=== PATIENT | female | born 1940 | race Caucasian/White ===

== ENCOUNTER 2024-01-03 16:17 | Emergency (ER) | payer OTHER ==
[2024-01-03] MEDS ORDERED: NA CHLORIDE 0.9% 1,000 ML ONE (17:15)
[2024-01-03 17:34] LABS: Absolute Eosinophils 0.1 K/uL (0-0.5); Absolute Lymphocytes (CBC) 1.1 K/uL (0.7-4.9); Absolute Monocytes 0.6 K/uL (0.1-1.3); Absolute Neutrophil 9.1 K/uL (1.8-8.0); Basophils % 0.3 % (0-1.3); Eosinophils % 1.1 % (0-4.4); Hematocrit 39.8 % (36.0-45.0); Hemoglobin 13.4 g/dL (12.0-15.0); Lymphocytes % 10.2 % (15.3-44.8); MCHC 33.6 g/dL (32.0-36.0); MCV 86.1 fL (80-100); MPV 8.2 fL (7.6-11.3); Neutrophils % 83.4 % (41.7-73.7); Platelets 292 thou/uL (152-406); RBC Red Blood Cell Count 4.63 M/uL (3.86-4.86); Red Cell Distribution Width 15.1 % (12.1-15.2)
--- NOTE | 2024-01-03 18:05 | RAD REPORT ---
EXAM DESCRIPTION: RAD - Chest Single View - 01/03/2024 5:57 pm CLINICAL HISTORY: near syncope Chest pain. COMPARISON: <Comparisons> FINDINGS: Portable technique limits examination quality. The lungs are emphysematous but grossly clear. The heart is normal in size. No displaced fractures. IMPRESSION: COPD.
[2024-01-03 18:52] LABS: Albumin 3.4 g/dL (3.4-5.0); Albumin/Globulin Ratio 1.3 (1.1-1.8); Anion Gap 10.8 mEq/L (5.0-15.0); Bilirubin Direct 0.2 mg/dL (0-0.2); Bilirubin Indirect, Calculated 0.5 mg/dL (0.2-0.8); Bilirubin Total 0.7 mg/dL (0.2-1.0); Globulin 2.7 g/dL (2.3-3.5); Magnesium 2.2 mg/dL (1.6-2.4); Potassium 3.8 mEq/L (3.5-5.1); Protein, Total 6.1 g/dL (6.4-8.2); Troponin High Sensitivity 6.3 pg/mL (<58.9)
[2024-01-03 19:07] LABS: Specific Gravity 1.007 (1.005-1.030); Sqamous Epithelial <5 /HPF (None Seen); Urine Bacteria <20 /HPF (<20); Urine Bilirubin NEGATIVE (Negative); Urine Blood Negative (Negative); Urine Clarity Extremely Turbid (Clear); Urine Color Light-Yellow (Yellow); Urine Crystals Unidentified Few /HPF (None Seen); Urine Culture Reflex Order NOT NEEDED; Urine Glucose NEGATIVE (Negative); Urine Ketones NEGATIVE (Negative); Urine Micro Reflex YN NO BILL MICROSCOPIC; Urine Mucus Slight /HPF (None Seen); Urine Nitrite 2+ (Negative); Urine Protein NEGATIVE (Negative); Urine RBC <5 /HPF (None Seen); Urine Urobilinogen Normal (Normal); Urine WBC Clump Rare /HPF (None Seen); Urine pH 7.5 (5.0-7.0)
--- NOTE | 2024-01-03 19:33 | RAD REPORT ---
EXAM DESCRIPTION: CTAbdomen Pelvis W Contrast - 01/03/2024 7:18 pm CLINICAL HISTORY: Abdominal pain. abd pain, diarrhea COMPARISON: <Comparisons> TECHNIQUE: CT imaging of the abdomen and pelvis was performed with 100 ml non-ionic IV contrast. All CT scans are performed using dose optimization technique as appropriate and may include automated exposure control or mA/KV adjustment according to patient size. FINDINGS: The lung bases are clear.Small hiatal hernia. The liver demonstrates benign cyst. Spleen, pancreas, adrenal glands and kidneys are within normal li mits. No bowel obstruction, free air, free fluid or abscess. Sigmoid diverticulosis coli without diverticul itis. The appendix is normal. No evidence of significant lymphadenopathy. Mild lumbar degenerative changes. IMPRESSION: No acute intra-abdominal or pelvic finding. Sigmoid diverticulosis coli without diverticulitis.
--- NOTE | 2024-01-03 19:58 | EDPHYS ---
Physician Documentation [facility] Name: Mira Lynn Age: 83 yrs Sex: Female : 1940 Arrival Date: 01/03/2024 Time: 16:17 Bed 14 Private MD: ED Physician Dalton Hall HPI: 01/02 17:13 This 83 yrs old Female presents to ER via EMS with complaints of low blood pressure rt readings. 17:13 Patient presents to the ED with a near syncopal episode that occurred about 1 hour rt prior to arrival. The patient became acutely lightheaded but did not lose consciousness. She was helped down by her daughter and had no head trauma. Patient reportedly had diarrhea at that time. Denies any current diarrhea reports some mild abdominal discomfort. States that she is no longer lightheaded but does not feel back to normal. Denies other acute complaints at this time, symptoms are moderate in severity, no other aggravating or elevating factors.. Historical: - Allergies: 16:30 No Known Allergies; rs5 - PMHx: 16:30 Hypertensive disorder; Hypercholesterolemia; rs5 - PSHx: 16:30 None; rs5 - Immunization history:: Adult Immunizations up to date. - Infectious Disease History:: Denies. - Social history:: Smoking status: Patient denies any tobacco usage or history of. - Family history:: not pertinent. ROS: 17:13 Constitutional: Negative for fever, chills, and weight loss, Cardiovascular: Negative rt for chest pain, palpitations, and edema, Respiratory: Negative for shortness of breath, cough, wheezing, and pleuritic chest pain, MS/Extremity: Negative for injury and deformity, Skin: Negative for injury, rash, and discoloration, Psych: Negative for depression, anxiety, suicide ideation, homicidal ideation, and hallucinations, 17:13 Abdomen/GI: Positive for abdominal pain, diarrhea, Negative for nausea and vomiting, rectal bleeding, 17:13 Neuro: Positive for near syncope, Negative for loss of consciousness, Exam: 17:13 Constitutional: This is a well developed, well nourished patient who is awake, alert, rt and in no acute distress. Head/Face: Normocephalic, atraumatic. Chest/axilla: Normal chest wall appearance and motion. Nontender with no deformity. No lesions are appreciated. Cardiovascular: Regular rate and rhythm with a normal S1 and S2. No gallops, murmurs, or rubs. Normal PMI, no JVD. No pulse deficits. Respiratory: Lungs have equal breath sounds bilaterally, clear to auscultation and percussion. No rales, rhonchi or wheezes noted. No increased work of breathing, no retractions or nasal flaring. Skin: Warm, dry with normal turgor. Normal color with no rashes, no lesions, and no evidence of cellulitis. MS/ Extremity: Pulses equal, no cyanosis. Neurovascular intact. Full, normal range of motion. Neuro: Awake and alert, GCS 15, oriented to person, place, time, and situation. Cranial nerves II-XII grossly intact. Motor strength 5/5 in all extremities. Sensory grossly intact. Cerebellar exam normal. Normal gait. 17:13 Abdomen/GI: Minimal tenderness diffusely without rebound, guarding, distention, 17:47 ECG was reviewed by the Attending Physician. rt Vital Signs: 16:26 BP 133 / 66; Pulse 66; Resp 17; Temp 97.8(O); Pulse Ox 94% on R/A; rs5 17:49 BP 125 / 64; Pulse 60; Resp 17; Pulse Ox 98% on R/A; rs5 18:56 BP 123 / 92; Pulse 88; Resp 18; Temp 97.8; Pulse Ox 94% on R/A; Pain 0/10; bm8 20:36 BP 128 / 86; Pulse 88; Resp 16; Temp 98.2; Pulse Ox 100% ; Pain 0/10; jm12 18:56 Pain Scale: Adult bm8 20:36 Pain Scale: Adult jm12 Nicolás Coma Score: 18:56 Eye Response: spontaneous(4). Motor Response: obeys commands(6). Verbal Response: bm8 oriented(5). Total: 15. MDM: 16:44 Patient medically screened. rt 20:09 Differential Diagnosis Hypotension, likely medication induced, dehydration, rt dysrhythmia, anemia. Data reviewed: vital signs, nurses notes, lab test result(s), EKG, radiologic studies. Consideration of Admission/Observation Escalation of care including admission/observation considered. Offered patient admission for further monitoring. Patient and daughter state that they do not wish to be admitted to the hospital, will watch the patient closely at home, believe this is reasonable at this time, patient to follow-up as an outpatient. Strict return precautions were discussed. I considered the following discharge prescriptions or medication management in the emergency department Medications were administered in the Emergency Department. See MAR. Independent interpretation of the following test(s) in the Emergency Department CT Scan: My interpretation is No bowel obstruction similar to rotation of CT scan. Care significantly affected by the following chronic conditions: Hypertension. Counseling: I had a detailed discussion with the patient and/or guardian regarding the historical points, exam findings, and any diagnostic results supporting the discharge/admit diagnosis, lab results, radiology results, the need for outpatient follow up, to return to the emergency department if symptoms worsen or persist or if there are any questions or concerns that arise at home. Response to treatment: the patient's symptoms have markedly improved after treatment. 01/02 16:58 Order name: Basic Metabolic Panel; Complete Time: 19:12 rt 01/02 16:58 Order name: CBC with Diff; Complete Time: 18:12 rt 01/02 16:58 Order name: LFT's; Complete Time: 19:12 rt 01/02 16:58 Order name: Magnesium; Complete Time: 19:12 rt 01/02 16:58 Order name: Troponin HS; Complete Time: 19:12 rt 01/02 16:58 Order name: UAM; Complete Time: 19:12 rt 01/02 16:58 Order name: XRAY Chest (1 view); Complete Time: 18:12 rt 01/02 16:58 Order name: CT Abd/Pelvis - IV Contrast Only; Complete Time: 19:35 rt 01/02 16:58 Order name: EKG; Complete Time: 16:59 rt 01/02 16:58 Order name: Cardiac monitoring; Complete Time: 17:21 rt 01/02 16:58 Order name: EKG - Nurse/Tech; Complete Time: 17:48 rt 01/02 16:58 Order name: IV Saline Lock; Complete Time: 17:21 rt 01/02 16:58 Order name: Labs collected and sent; Complete Time: 17:21 rt 01/02 16:58 Order name: O2 Per Protocol; Complete Time: 17:21 rt 01/02 16:58 Order name: O2 Sat Monitoring; Complete Time: 17:21 rt EC:47 Rate is 77 beats/min. Rhythm is regular, Normal Sinus Rhythm with No ectopy. QRS [place] rt is Normal. MS interval is normal. QRS interval is normal. QT interval is normal. No Q waves. Clinical impression: NSR w/ Non-specific ST/T Changes. Administered Medications: 17:20 Drug: NS 0.9% IV 1000 ml IV at 1 bolus Per protocol; 1000 mL bolus Route: IV; Rate: 1 rs5 bolus; Site: right antecubital; Disposition Summary: 01/03/24 19:58 Discharge Ordered Notes: Location: Home rt Condition: Stable rt Diagnosis - Syncope Near rt - Idiopathic hypotension rt Followup: rt - With: Private Physician - When: 2 - 3 days - Reason: Discharge Instructions: - Discharge Summary Sheet rt - Hypotension rt - Near-Syncope rt Forms: - Medication Reconciliation Form rt - Antibiotic Education rt - Prescription Opioid Use rt - Patient Portal Instructions rt - Leadership Thank You Letter rt Signatures: Dispatcher [employer] EDDalton Escalante MD MD rt Beau Caldwell RN RN rs5 Corrections: (The following items were deleted from the chart) 16:59 16:59 Abdomen Pelvis W Con+CT.RAD.BRZ ordered. EDMS EDMS
--- NOTE | 2024-01-03 19:58 | ER ---
Nurse's Notes [facility] Name: Mira Lynn Age: 83 yrs Sex: Female : 1940 Arrival Date: 01/03/2024 Time: 16:17 Bed 14 Private MD: Diagnosis: Syncope Near;Idiopathic hypotension Presentation: 01/02 16:26 Chief complaint: EMS states: Near syncopal episode while ambulating into the kitchen. rs5 Denies falls or LOC. Daughter toned out EMS, on arrival blood pressure readings were in 80's systolics. Coronavirus screen: At this time, the client does not indicate any symptoms associated with coronavirus-19. Ebola Screen: No symptoms or risks identified at this time. Initial Sepsis Screen: Does the patient meet any 2 criteria? No. Patient's initial sepsis screen is negative. Does the patient have a suspected source of infection? No. Patient's initial sepsis screen is negative. Risk Assessment: Do you want to hurt yourself or someone else? Patient reports no desire to harm self or others. Onset of symptoms was January 03, 2024. 16:26 Method Of Arrival: EMS: [facility] rs5 16:26 Acuity: ELSA 3 rs5 16:26 Care prior to arrival: Medication(s) given: 1 L normal saline IV initiated. 20 GA, in rs5 the right antecubital area. Historical: - Allergies: 16:30 No Known Allergies; rs5 - PMHx: 16:30 Hypertensive disorder; Hypercholesterolemia; rs5 - PSHx: 16:30 None; rs5 - Immunization history:: Adult Immunizations up to date. - Infectious Disease History:: Denies. - Social history:: Smoking status: Patient denies any tobacco usage or history of. - Family history:: not pertinent. Screenin:34 [facility] ED Fall Risk Assessment (Adult) History of falling in the last 3 months, rs5 including since admission Yes- single mechanical fall (1 pt) Confusion or Disorientation No (0 pts) Intoxicated or Sedated No (0 pts) Impaired Gait Yes (1 pt) Mobility Assist Device Used Yes (1 pt) Altered Elimination No (0 pt) Score/Fall Risk Level 0 - 2 = Low Risk Oriented to surroundings, Maintained a safe environment. Abuse screen: Denies threats or abuse. Nutritional screening: No deficits noted. Tuberculosis screening: No symptoms or risk factors identified. Assessment: 16:30 General: Appears in no apparent distress. comfortable, Behavior is calm, cooperative. rs5 Pain: Denies pain. Neuro: Level of Consciousness is awake, alert, obeys commands, Oriented to person, place, time, situation. Cardiovascular: Patient's skin is warm and dry. Respiratory: Airway is patent Respiratory effort is even, unlabored, Respiratory pattern is regular, symmetrical. GI: Abdomen is round non-distended, Abd is soft and non tender X 4 quads. : No signs and/or symptoms were reported regarding the genitourinary system. EENT: No signs and/or symptoms were reported regarding the EENT system. Derm: Skin is intact, Skin is pink, warm \T\ dry. Musculoskeletal: Range of motion: intact in all extremities. 17:49 Reassessment: Patient and/or family updated on plan of care and expected duration. Pain rs5 level reassessed. Patient is alert, oriented x 3, equal unlabored respirations, skin warm/dry/pink. 18:45 Reassessment: Patient appears in no apparent distress at this time. Patient and/or bm8 family updated on plan of care and expected duration. Pain level reassessed. Patient is alert, oriented x 3, equal unlabored respirations, skin warm/dry/pink. Patient denies pain at this time. Reassessment: Patient states symptoms have improved. Pain: Denies pain. 19:31 Reassessment: No changes from previously documented assessment. Patient is alert, jm12 oriented x 3, equal unlabored respirations, skin warm/dry/pink. Vital Signs: 16:26 BP 133 / 66; Pulse 66; Resp 17; Temp 97.8(O); Pulse Ox 94% on R/A; rs5 17:49 BP 125 / 64; Pulse 60; Resp 17; Pulse Ox 98% on R/A; rs5 18:56 BP 123 / 92; Pulse 88; Resp 18; Temp 97.8; Pulse Ox 94% on R/A; Pain 0/10; bm8 20:36 BP 128 / 86; Pulse 88; Resp 16; Temp 98.2; Pulse Ox 100% ; Pain 0/10; jm12 18:56 Pain Scale: Adult bm8 20:36 Pain Scale: Adult [facility] Vitals: 18:56 Cardiac Rhythm Assessment Sinus rhythm. bm8 Oakley Coma Score: 18:56 Eye Response: spontaneous(4). Motor Response: obeys commands(6). Verbal Response: bm8 oriented(5). Total: 15. ED Course: 16:26 Patient arrived in ED. rs5 16:26 Dalton Hall MD is Attending Physician. rt 16:29 Triage completed. rs5 16:34 Beau Caldwell, RN is Primary Nurse. rs5 16:34 Patient has correct armband on for positive identification. Placed in gown. Bed in low rs5 position. Call light in reach. Side rails up X2. 16:34 No provider procedures requiring assistance completed. rs5 17:59 XRAY Chest (1 view) In Process Unspecified. EDMS 18:56 Client placed on continuous cardiac and pulse oximetry monitoring. NIBP monitoring bm8 applied. school lunch monitor on. Pulse ox on. NIBP on. Door closed. Noise minimized. Warm blanket given. Pillow given. Verbal reassurance given. Head of bed elevated. 18:56 Inserted saline lock: 20 gauge in right antecubital area, using aseptic technique. bm8 19:20 CT Abd/Pelvis - IV Contrast Only In Process Unspecified. EDMS 19:31 IV is patent, is intact, with fluids infusing freely, with good blood return, Flushed jm12 right antecubital with 5 ml normal saline. 20:37 IV discontinued, intact, bleeding controlled, No redness/swelling at site. Pressure jm12 dressing applied. Administered Medications: 17:20 Drug: NS 0.9% IV 1000 ml IV at 1 bolus Per protocol; 1000 mL bolus Route: IV; Rate: 1 rs5 bolus; Site: right antecubital; Medication: 16:35 VIS not applicable for this client. rs5 Outcome: 19:58 Discharge ordered by MD. rt 20:38 Discharged to home ambulatory, with family, jm 20:38 Condition: stable 20:38 Discharge instructions given to patient, family, Instructed on discharge instructions, follow up and referral plans. Demonstrated understanding of instructions, follow-up care, 20:38 Patient left the ED. jm12 Signatures: Dispatcher [employer] EDND Dalton Hall MD MD rt Beau Caldwell, RN RN rs5 Eagle Mcclure RN RN bm8 Markee, Natalee, RN RN jm12
[2024-01-03 21:02] VITALS: BP 128/86; TEMP 98.2; O2SAT 100
--- NOTE | 2024-01-04 13:54 | EKG ---
Test Date: 2024-01-03 Test Time: 17:35:04 Dot Etcher: RUTH MEASUREMENT RESULTS: Intervals: Rate: 77 PA: 162 QRSD: 78 QT: 440 QTc: 497 [place]ry: P: 72 PA: 162 QRS: 4 T: 69 INTERPRETIVE STATEMENTS: Normal sinus rhythm Nonspecific ST abnormality Prolonged QT Abnormal ECG No previous ECG available for comparison Electronically Signed On 01-04-24 13:54:05 CDT by Perez Nicolas
== END 2024-01-03 20:38 | disposition home or self-care (01) ==
LOC: ER 16:17
DX: I95.0 Idiopathic hypotension (principal); R19.7 Diarrhea, unspecified; R11.0 Nausea; I10 Essential (primary) hypertension
CPT/HCPCS: 93005; 85025; 81001; 80048; 36415; 83735; 80076; 84484; 74177; 71045; 99285; Q9967; J7030

== ENCOUNTER 2024-01-08 02:56 | Emergency (ER) | payer OTHER ==
[2024-01-08 03:46] LABS: Absolute Basophils 0.1 K/uL (0-0.5); Absolute Eosinophils 0.3 K/uL (0-0.5); Absolute Lymphocytes (CBC) 2.1 K/uL (0.7-4.9); Absolute Monocytes 0.7 K/uL (0.1-1.3); Basophils % 1.3 % (0-1.3); Eosinophils % 4.4 % (0-4.4); Hematocrit 39.7 % (36.0-45.0); Hemoglobin 13.5 g/dL (12.0-15.0); Lymphocytes % 29.2 % (15.3-44.8); MCH 29.1 pg (27.0-35.0); MCV 85.5 fL (80-100); MPV 8.2 fL (7.6-11.3); Monocytes % 10.2 % (3.3-12.3); Neutrophils % 54.9 % (41.7-73.7); Nucleated Red Blood Cells % 0.1 % (0-0); Platelets 283 thou/uL (152-406); RBC Red Blood Cell Count 4.64 M/uL (3.86-4.86); Red Cell Distribution Width 15.2 % (12.1-15.2)
[2024-01-08 03:55] LABS: Anion Gap 10.3 mEq/L (5.0-15.0); Potassium 3.3 mEq/L (3.5-5.1); Troponin High Sensitivity 6.8 pg/mL (<58.9)
[2024-01-08] MEDS ORDERED: AMLODIPINE 5 MG TAB ONE (04:07)
[2024-01-08] MEDS ORDERED: METOPROLOL XL 50 MG TAB PO ONE (04:07)
[2024-01-08] MEDS ORDERED: NA CHLORIDE 0.9% 250 ML ONE (04:53)
[2024-01-08] MEDS ORDERED: POTASSIUM 25 MEQ EFFERV TAB ONE (04:53)
[2024-01-08 05:40] LABS: Specific Gravity 1.007 (1.005-1.030); Sqamous Epithelial None Seen /HPF (None Seen); Urine Bacteria <20 /HPF (<20); Urine Bilirubin NEGATIVE (Negative); Urine Blood Negative (Negative); Urine Clarity Turbid (Clear); Urine Color Colorless (Yellow); Urine Culture Reflex Order NOT NEEDED; Urine Glucose NEGATIVE (Negative); Urine Ketones NEGATIVE (Negative); Urine Microscopic Reflex YN ORDER UMIC; Urine Mucus Slight /HPF (None Seen); Urine Nitrite NEGATIVE (Negative); Urine Protein NEGATIVE (Negative); Urine RBC <5 /HPF (None Seen); Urine Urobilinogen Normal (Normal); Urine WBC <5 /HPF (<5)
--- NOTE | 2024-01-08 05:43 | ER ---
Nurse's Notes [facility] Name: Mira Lynn Age: 83 yrs Sex: Female : 1940 Arrival Date: 01/08/2024 Time: 02:56 Bed 7 Private MD: Diagnosis: Essential (primary) hypertension;Hypokalemia Presentation: 01/07 02:59 Chief complaint: EMS states: She was here recently due to low blood pressure, she ha1 discontinue her blood pressure medications and today she reports elevated blood pressure. on our arrival blood pressure 198/103. 20 mg of Labetalol were given. 02:59 Coronavirus screen: Vaccine status: Patient reports receiving the 2nd dose of the covid ha1 vaccine. Ebola Screen: No symptoms or risks identified at this time. Initial Sepsis Screen: Does the patient meet any 2 criteria? No. Patient's initial sepsis screen is negative. Does the patient have a suspected source of infection? No. Patient's initial sepsis screen is negative. Risk Assessment: Do you want to hurt yourself or someone else? Patient reports no desire to harm self or others. Onset of symptoms was January 08, 2024. 02:59 Method Of Arrival: EMS: [facility] ha1 02:59 Acuity: ELSA 3 ha1 Triage Assessment: 01/06 02:59 General: Appears comfortable, Behavior is calm, cooperative. Pain: Denies pain. Neuro: ha1 Level of Consciousness is awake, alert, obeys commands, Oriented to person, place, time, situation. Neuro: Reports dizziness. Cardiovascular: Capillary refill < 3 seconds Patient's skin is warm and dry. Respiratory: Airway is patent Respiratory effort is even, unlabored, Respiratory pattern is regular, symmetrical. GI: No signs and/or symptoms were reported involving the gastrointestinal system. Abdomen is round non-distended. : No signs and/or symptoms were reported regarding the genitourinary system. Derm: Skin is pink, warm \T\ dry. Musculoskeletal: Circulation, motion, and sensation intact. Range of motion: intact in all extremities. Historical: - Allergies: 01/07 03:34 No Known Allergies; ha1 - PMHx: 03:34 Hypercholesterolemia; Hypertensive disorder; ha1 - Immunization history:: Adult Immunizations not up to date. - Infectious Disease History:: Denies. - Social history:: Smoking status: Patient denies any tobacco usage or history of. Screenin:59 [facility] ED Fall Risk Assessment (Adult) History of falling in the last 3 months, ha1 including since admission No falls in past 3 months (0 pts) Confusion or Disorientation No (0 pts) Intoxicated or Sedated No (0 pts) Impaired Gait No (0 pts) Mobility Assist Device Used Yes (1 pt) Altered Elimination No (0 pt) Score/Fall Risk Level 3 or more points = High Risk Oriented to surroundings, Maintained a safe environment, Hourly rounding (assess needs \T\ fall precautionary measures) done. Abuse screen: Denies threats or abuse. Denies injuries from another. Nutritional screening: No deficits noted. Tuberculosis screening: No symptoms or risk factors identified. Assessment: 02:59 Reassessment: see triage assessment. ha1 04:00 Reassessment: Patient and/or family updated on plan of care and expected duration. Pain ha1 level reassessed. Patient is alert, oriented x 3, equal unlabored respirations, skin warm/dry/pink. 05:00 Reassessment: Patient and/or family updated on plan of care and expected duration. Pain ha1 level reassessed. Patient is alert, oriented x 3, equal unlabored respirations, skin warm/dry/pink. Vital Signs: 02:59 BP 199 / 102; Pulse 72; Resp 17 S; Temp 97.6(T); Pulse Ox 100% on R/A; Weight 53.07 kg; ha1 Height 5 ft. 1 in. ; 03:34 BP 172 / 95; Pulse 69; Resp 17 S; Pulse Ox 99% on R/A; ha1 04:30 BP 173 / 95; Pulse 71; Resp 17 S; Pulse Ox 100% on R/A; ha1 05:30 BP 180 / 88; Pulse 74; Resp 17 S; Pulse Ox 100% on R/A; ha1 06:00 BP 170 / 83; Pulse 71; Resp 17 S; Pulse Ox 99% on R/A; ha1 02:59 Body Mass Index 22.11 (53.07 kg, 154.94 cm) ha1 ED Course: 02:59 Patient arrived in ED. [email or web address] 02:59 Patient has correct armband on for positive identification. Placed in gown. Bed in low ha1 position. Call light in reach. Side rails up X2. Adult w/ patient. 02:59 Arm band placed on right wrist. ha1 02:59 Maintain EMS IV. Dressing intact. Good blood return noted. Site clean \T\ dry. Gauge \T\ castro 1 site: 20 G KIZZY. 03:17 Christiano Sommer MD is Attending Physician. corinna 03:34 Triage completed. ha1 03:40 Radha Conley, RN is Primary Nurse. ha1 04:56 Chest Single View XRAY In Process Unspecified. EDAK 06:00 Provided Education on: monitoring BP and taking BP medication . ha1 06:05 No provider procedures requiring assistance completed. ha1 06:05 IV discontinued, intact, bleeding controlled, No redness/swelling at site. Pressure ha1 dressing applied. Administered Medications: 04:00 Drug: Norvasc PO 5 mg PO once Route: PO; ha1 04:40 Follow up: Response: No adverse reaction; Blood pressure is lowered ha1 04:00 Drug: ToPROL XL PO 25 mg PO once Route: PO; ha1 04:40 Follow up: Response: No adverse reaction ha1 04:39 Drug: NS 0.9% IV 250 ml IV at bolus once Route: IV; Rate: bolus; Site: right upper arm; ha1 05:12 Follow up: Response: No adverse reaction; IV Status: Completed infusion; IV Intake: ha1 250ml 04:40 Drug: Potassium PO Effervescent Tablet 25 mEq PO once; dissolve in 4 ounces of water or ha1 juice Route: PO; 05:12 Follow up: Response: No adverse reaction ha1 Medication: 03:39 VIS not applicable for this client. ha1 Intake: 05:12 IV: 250ml; Total: 250ml. ha1 Outcome: 05:42 Discharge ordered by . [facility] 06:05 Discharged to home via wheelchair, ha1 06:05 Condition: stable 06:05 Discharge instructions given to patient, Instructed on discharge instructions, follow up and referral plans. no driving heavy equipment, Demonstrated understanding of instructions, follow-up care, medications, Prescriptions given X 2, 06:14 Patient left the ED. ha1 Signatures: Dispatcher [employer] EDAK Christiano Sommer MD MD cha Jeffries, Jennifer [email or web address] Radha Conley, RN RN ha1
--- NOTE | 2024-01-08 05:43 | EDPHYS ---
Physician Documentation [facility] Name: Mira Lynn Age: 83 yrs Sex: Female : 1940 Arrival Date: 01/08/2024 Time: 02:56 Bed 7 Private MD: ED Physician Christiano Sommer HPI: 01/07 03:42 This 83 yrs old Female presents to ER via EMS with complaints of High Blood corinna Pressure. 03:42 The patient has elevated blood pressure and discovered this at home. Onset: The corinna symptoms/episode began/occurred this morning, yesterday. Modifying factors: The symptoms are aggravated by activity, The symptoms are alleviated by remaining still. Associated signs and symptoms: Pertinent positives: dizziness. Severity of symptoms: At its worst the blood pressure was mild, in the emergency department the blood pressure is unchanged. The patient has experienced similar episodes in the past, multiple times. Historical: - Allergies: 03:34 No Known Allergies; ha1 - PMHx: 03:34 Hypercholesterolemia; Hypertensive disorder; ha1 - Immunization history:: Adult Immunizations not up to date. - Infectious Disease History:: Denies. - Social history:: Smoking status: Patient denies any tobacco usage or history of. ROS: 03:43 Constitutional: Negative for fever, chills, and weight loss, Eyes: Negative for injury, corinna pain, redness, and discharge, ENT: Negative for injury, pain, and discharge, Neck: Negative for injury, pain, and swelling, Cardiovascular: Negative for chest pain, palpitations, and edema, Respiratory: Negative for shortness of breath, cough, wheezing, and pleuritic chest pain, Abdomen/GI: Negative for abdominal pain, nausea, vomiting, diarrhea, and constipation, Back: Negative for injury and pain, : Negative for injury, bleeding, discharge, and swelling, MS/Extremity: Negative for injury and deformity, Skin: Negative for injury, rash, and discoloration, Neuro: Negative for headache, weakness, numbness, tingling, and seizure, Allergy/Immunology: Negative for hives, rash, and allergies, Endocrine: Negative for neck swelling, polydipsia, polyuria, polyphagia, and marked weight changes, Hematologic/Lymphatic: Negative for swollen nodes, abnormal bleeding, and unusual bruising, 03:43 Psych: Positive for anxiety, depression, Exam: 03:43 Constitutional: This is a well developed, well nourished patient who is awake, alert, corinna and in no acute distress. Head/Face: Normocephalic, atraumatic. Eyes: Pupils equal round and reactive to light, extra-ocular motions intact. Lids and lashes normal. Conjunctiva and sclera are non-icteric and not injected. Cornea within normal limits. Periorbital areas with no swelling, redness, or edema. ENT: Nares patent. No nasal discharge, no septal abnormalities noted. Tympanic membranes are normal and external auditory canals are clear. Oropharynx with no redness, swelling, or masses, exudates, or evidence of obstruction, uvula midline. Mucous membranes moist. Neck: Trachea midline, no thyromegaly or masses palpated, and no cervical lymphadenopathy. Supple, full range of motion without nuchal rigidity, or vertebral point tenderness. No Meningismus. Chest/axilla: Normal chest wall appearance and motion. Nontender with no deformity. No lesions are appreciated. Cardiovascular: Regular rate and rhythm with a normal S1 and S2. No gallops, murmurs, or rubs. Normal PMI, no JVD. No pulse deficits. Respiratory: Lungs have equal breath sounds bilaterally, clear to auscultation and percussion. No rales, rhonchi or wheezes noted. No increased work of breathing, no retractions or nasal flaring. Abdomen/GI: Soft, non-tender, with normal bowel sounds. No distension or tympany. No guarding or rebound. No evidence of tenderness throughout. Back: No spinal tenderness. No costovertebral tenderness. Full range of motion. Female : Normal external genitalia. Skin: Warm, dry with normal turgor. Normal color with no rashes, no lesions, and no evidence of cellulitis. MS/ Extremity: Pulses equal, no cyanosis. Neurovascular intact. Full, normal range of motion. Neuro: Awake and alert, GCS 15, oriented to person, place, time, and situation. Cranial nerves II-XII grossly intact. Motor strength 5/5 in all extremities. Sensory grossly intact. Cerebellar exam normal. Normal gait. Psych: Awake, alert, with orientation to person, place and time. Behavior, mood, and affect are within normal limits. 03:43 ECG was reviewed by the Attending Physician. Vital Signs: 02:59 BP 199 / 102; Pulse 72; Resp 17 S; Temp 97.6(T); Pulse Ox 100% on R/A; Weight 53.07 kg; ha1 Height 5 ft. 1 in. ; 03:34 BP 172 / 95; Pulse 69; Resp 17 S; Pulse Ox 99% on R/A; ha1 04:30 BP 173 / 95; Pulse 71; Resp 17 S; Pulse Ox 100% on R/A; ha1 05:30 BP 180 / 88; Pulse 74; Resp 17 S; Pulse Ox 100% on R/A; ha1 06:00 BP 170 / 83; Pulse 71; Resp 17 S; Pulse Ox 99% on R/A; ha1 02:59 Body Mass Index 22.11 (53.07 kg, 154.94 cm) [facility] MDM: 03:22 Patient medically screened. [facility] 03:45 Differential diagnosis: hypertensive crisis, Malignant HTN. Data reviewed: vital signs, [facility] nurses notes, lab test result(s), EKG, radiologic studies, plain films. Consideration of Admission/Observation Escalation of care including admission/observation considered. I considered the following discharge prescriptions or medication management in the emergency department Medications were administered in the Emergency Department. See MAR. Independent interpretation of the following test(s) in the Emergency Department EKG: See my EKG interpretation above. Test considered but Not performed: CT: no ct head. Historians other than the Patient: Daughter/Son: daughter , well informed. Care significantly affected by the following chronic conditions: Hypertension, high cholesterol. 01/07 03:08 Order name: Basic Metabolic Panel; Complete Time: 04:30 [facility] 01/07 03:08 Order name: CBC with Diff; Complete Time: 04:30 [facility] 01/07 03:08 Order name: Troponin HS; Complete Time: 04:30 [facility] 01/07 03:22 Order name: Urinalysis w/ reflexes; Complete Time: 05:42 [facility] 01/07 04:32 Order name: Chest Single View XRAY [facility] 01/07 03:08 Order name: Cardiac monitoring; Complete Time: 03:20 [facility] 01/07 03:08 Order name: EKG - Nurse/Tech; Complete Time: 03:20 [facility] 01/07 03:08 Order name: IV Saline Lock; Complete Time: 03:20 [facility] 01/07 03:08 Order name: Labs collected and sent; Complete Time: 03:20 vc1 01/07 03:08 Order name: O2 Per Protocol; Complete Time: 03:20 vc1 01/07 03:08 Order name: O2 Sat Monitoring; Complete Time: 03:20 vc1 01/07 04:32 Order name: Misc. Order: get urine; Complete Time: 05:11 corinna 01/07 04:32 Order name: PO challenge; Complete Time: 04:46 corinna EC:43 Rate is 73 beats/min. Rhythm is regular. QRS [place] is Normal. SC interval is normal. QRS corinna interval is normal. QT interval is normal. No Q waves. T waves are Normal. No ST changes noted. Clinical impression: NSR w/ Non-specific ST/T Changes and No evidence of ischemia. Interpreted by me. Reviewed by me. Administered Medications: 04:00 Drug: Norvasc PO 5 mg PO once Route: PO; ha1 04:40 Follow up: Response: No adverse reaction; Blood pressure is lowered ha1 04:00 Drug: ToPROL XL PO 25 mg PO once Route: PO; ha1 04:40 Follow up: Response: No adverse reaction ha1 04:39 Drug: NS 0.9% IV 250 ml IV at bolus once Route: IV; Rate: bolus; Site: right upper arm; ha1 05:12 Follow up: Response: No adverse reaction; IV Status: Completed infusion; IV Intake: ha1 250ml 04:40 Drug: Potassium PO Effervescent Tablet 25 mEq PO once; dissolve in 4 ounces of water or ha1 juice Route: PO; 05:12 Follow up: Response: No adverse reaction ha1 Disposition Summary: 01/08/24 05:42 Discharge Ordered Notes: Location: Home corinna Problem: new corinna Symptoms: have improved corinna Condition: Stable corinna Diagnosis - Essential (primary) hypertension corinna - Hypokalemia corinna Followup: corinna - With: Private Physician - When: 2 - 3 days - Reason: Recheck today's complaints, Continuance of care, Re-evaluation by your physician Discharge Instructions: - Discharge Summary Sheet corinna - Potassium Content of Foods corinna - Hypertension, Adult corinna - Hypertension, Adult, [id number] corinna - How to Take Your Blood Pressure, [id number] corinna - Aspirin and Your Heart corinna - Hypokalemia corinna - Managing Your Hypertension corinna Forms: - Medication Reconciliation Form corinna - Antibiotic Education corinna - Prescription Opioid Use corinna - Patient Portal Instructions corinna - Leadership Thank You Letter [facility] Prescriptions: - Norvasc 5 mg Oral Tablet - take 1 tablet ORAL route once daily; 20 tablet; Refills: 0, Product Selection corinna Permitted - Toprol XL 25 mg Oral Tablet - take 1 tablet ORAL route once daily; 20 tablet; Refills: 0, Product Selection corinna Permitted Signatures: Dispatcher [employer] EDChristiano Guzmán MD MD cha Calcote, Vanessa RN RN vc1 Radha Conley RN RN ha1 Corrections: (The following items were deleted from the chart) 03:08 03:08 BASIC METABOLIC PANEL+C.LAB.BRZ ordered. EDMS EDMS 03:08 03:08 CBC+H.LAB.BRZ ordered. EDMS EDMS 03:08 03:08 Troponin High Sensitivity+C.LAB.BRZ ordered. EDMS EDMS
[2024-01-08 06:18] VITALS: TEMP 97.6
[2024-01-08 06:22] VITALS: BP 173/95; O2SAT 100
--- NOTE | 2024-01-08 10:48 | RAD REPORT ---
EXAM DESCRIPTION: RAD - Chest Single View - 01/08/2024 4:54 am CLINICAL HISTORY: Cough. COMPARISON: None. TECHNIQUE: XR CHEST 1 VIEW 01/08/2024 4:32 AM CDT FINDINGS: Cardiac silhouette is normal in size. Lungs are clear without consolidation, atelectasis, mass or edema. There is no pleural effusion. There is no pneumothorax. There are no acute osseous fin dings. IMPRESSION: Clear lungs. Electronically signed by: Reinaldo Burns MD 01/08/2024 05:10 AM CDT RP Due to temporary technical issues with the PACS/Fluency reporting system, reports are being signed by the in house radiologist without review as a courtesy to ensure prompt reporting. The interpreting r adiologist is fully responsible for the content of the report.
--- NOTE | 2024-01-09 12:55 | EKG ---
Test Date: 2024-01-08 Test Time: 03:10:20 Trouble Lineman: TORSTEN MEASUREMENT RESULTS: Intervals: Rate: 73 PA: 162 QRSD: 80 QT: 434 QTc: 478 [place]: P: 70 PA: 162 QRS: -35 T: 57 INTERPRETIVE STATEMENTS: Normal sinus rhythm Left axis deviation Abnormal ECG Compared to ECG 01/03/2024 17:35:04 Left-axis deviation now present ST (T wave) deviation no longer present Prolonged QT interval no longer present Electronically Signed On 01-09-24 12:54:08 CDT by Perez Nicolas
== END 2024-01-08 06:14 | disposition home or self-care (01) ==
LOC: ER 02:56
DX: I10 Essential (primary) hypertension (principal); E87.6 Hypokalemia; E78.00 Pure hypercholesterolemia, unspecified
CPT/HCPCS: 93005; 85025; 81001; 80048; 36415; 84484; 71045; J7050